=== PATIENT | male | born 1965 | race American Indian/Alaskan Native ===

== ENCOUNTER 2018-06-12 05:33 | Inpatient (IN) | payer MEDICARE ==
[2018-06-12] MEDS ORDERED: ZOFRAN IV ONE (08:25)
[2018-06-12] MEDS ORDERED: MORPHINE IV ONE ×2 (08:25→12:04)
--- NOTE | 2018-06-12 08:29 | Emergency Department Report ---
ED General Adult HPI - General Chief complaint: Chest Pain Stated complaint: CHEST PAIN Time Seen by Provider: 06/12/18 08:05 Source: patient, EMS Mode of arrival: Stretcher Limitations: No Limitations - History of Present Illness Initial comments: Patient presents to emergency department with chief complaint of chest pain that started last night. Patient describes the pain as pressure-like as if an elephant sitting on his chest. The pain is substernal in nature without radiation. Not relieved with 4 nitros at home. Patient has a history of megan nary artery disease as well as 5 vessel bypass and is followed by food safety technician at [facility]. Patient denies SOB -: Sudden Location: chest Radiation: non-radiation Severity scale (0 -10): 10 Quality: other (pressure ) Consistency: constant Improves with: none Worsens with: none Associated Symptoms: denies other symptoms Treatments Prior to Arrival: none - Related Data Home Medications Medication Instructions Recorded Confirmed Last Taken Apixaban [Eliquis] 5 mg PO BID 06/12/18 06/12/18 Unknown Aspirin [Aspirin BABY CHEW TAB] 81 mg PO QDAY 06/12/18 06/12/18 Unknown AtorvaSTATin [Lipitor] 40 mg PO QHS 06/12/18 06/12/18 Unknown Carvedilol [Coreg] 12.5 mg PO BID 06/12/18 06/12/18 Unknown Clopidogrel [Plavix] 75 mg PO QDAY 06/12/18 06/12/18 Unknown Furosemide [Lasix] 80 mg PO BID 06/12/18 06/12/18 Unknown Insulin Detemir [Levemir VIAL] 65 unit SQ BID 06/12/18 06/12/18 Unknown LORazepam [Ativan] 1 mg PO BID PRN 06/12/18 06/12/18 Unknown Lisinopril [Zestril TAB] 10 mg PO QDAY 06/12/18 06/12/18 Unknown amLODIPine [Norvasc] 10 mg PO DAILY 06/12/18 06/12/18 Unknown buPROPion XL [Wellbutrin Xl] 150 mg PO QAM 06/12/18 06/12/18 Unknown metFORMIN [Glucophage] 500 mg PO BID 06/12/18 06/12/18 Unknown traZODone [Desyrel] 100 mg PO QHS 06/12/18 06/12/18 Unknown Allergies Allergy/AdvReac Type Severity Reaction Status Date / Time gabapentin [From Neurontin] Allergy Unknown Verified 06/12/18 05:47 ibuprofen [From Motrin] Allergy Unknown Verified 06/12/18 05:47 Iodinated Contrast- Oral and Allergy Unknown Verified 06/12/18 05:47 IV Dye Iodine and Iodide Containing Allergy Unknown Verified 06/12/18 05:47 Produc latex Allergy Unknown Verified 06/12/18 05:47 metoprolol [From Toprol XL] Allergy Unknown Verified 06/12/18 05:47 topiramate [From Topamax] Allergy Unknown Verified 06/12/18 05:47 venom-honey bee Allergy Unknown Verified 06/12/18 05:47 seafood Allergy Unknown Uncoded 06/12/18 05:47 ED Review of Systems ROS: Stated complaint: CHEST PAIN Other details as noted in HPI Comment: All other systems reviewed and negative Constitutional: denies: chills, fever Eyes: denies: eye pain, eye discharge, vision change ENT: denies: ear pain, throat pain Respiratory: denies: cough, shortness of breath, wheezing Cardiovascular: chest pain. denies: palpitations Endocrine: no symptoms reported Gastrointestinal: denies: abdominal pain, nausea, diarrhea Genitourinary: denies: urgency, dysuria Musculoskeletal: denies: back pain, joint swelling, arthralgia Skin: denies: rash, lesions Neurological: denies: headache, weakness, paresthesias Psychiatric: denies: anxiety, depression Hematological/Lymphatic: denies: easy bleeding, easy bruising ED Past Medical Hx - Past Medical History Previous Medical History?: Yes Hx Hypertension: Yes Hx Heart Attack/AMI: Yes (x3) Hx Congestive Heart Failure: Yes Hx Diabetes: Yes Additional medical history: bulging disc. fld on back. CAD - Surgical History Past Surgical History?: Yes Hx Open Heart Surgery: Yes (CABG x5) Additional Surgical History: Back x9. prostate - Social History Smoking Status: Never Smoker Substance Use Type: None - Medications Home Medications: Home Medications Medication Instructions Recorded Confirmed Last Taken Type Apixaban [Eliquis] 5 mg PO BID 06/12/18 06/12/18 Unknown History Aspirin [Aspirin BABY CHEW TAB] 81 mg PO QDAY 06/12/18 06/12/18 Unknown History AtorvaSTATin [Lipitor] 40 mg PO QHS 06/12/18 06/12/18 Unknown History Carvedilol [Coreg] 12.5 mg PO BID 06/12/18 06/12/18 Unknown History Clopidogrel [Plavix] 75 mg PO QDAY 06/12/18 06/12/18 Unknown History Furosemide [Lasix] 80 mg PO BID 06/12/18 06/12/18 Unknown History Insulin Detemir [Levemir VIAL] 65 unit SQ BID 06/12/18 06/12/18 Unknown History LORazepam [Ativan] 1 mg PO BID PRN 06/12/18 06/12/18 Unknown History Lisinopril [Zestril TAB] 10 mg PO QDAY 06/12/18 06/12/18 Unknown History amLODIPine [Norvasc] 10 mg PO DAILY 06/12/18 06/12/18 Unknown History buPROPion XL [Wellbutrin Xl] 150 mg PO QAM 06/12/18 06/12/18 Unknown History metFORMIN [Glucophage] 500 mg PO BID 06/12/18 06/12/18 Unknown History traZODone [Desyrel] 100 mg PO QHS 06/12/18 06/12/18 Unknown History ED Physical Exam - General Limitations: No Limitations General appearance: alert, in no apparent distress - Head Head exam: Present: atraumatic, normocephalic - Eye Eye exam: Present: normal appearance, PERRL, EOMI - ENT ENT exam: Present: mucous membranes moist - Neck Neck exam: Present: normal inspection - Respiratory Respiratory exam: Present: normal lung sounds bilaterally, other (port right chest wall). Absent: respiratory distress, wheezes, rales - Cardiovascular Cardiovascular Exam: Present: regular rate, normal rhythm. Absent: systolic murmur, diastolic murmur, rubs, gallop - GI/Abdominal GI/Abdominal exam: Present: soft, normal bowel sounds. Absent: distended, tenderness - Rectal Rectal exam: Present: deferred - Extremities Exam Extremities exam: Present: normal inspection - Back Exam Back exam: Present: normal inspection - Neurological Exam Neurological exam: Present: alert, oriented X3 - Psychiatric Psychiatric exam: Present: normal affect, normal mood - Skin Skin exam: Present: warm, dry, intact, normal color. Absent: rash ED Course Vital Signs 06/12/18 06/12/18 06/12/18 05:35 11:01 14:12 Temperature 97.6 F Pulse Rate 86 80 78 Respiratory 18 16 16 Rate Blood Pressure 158/91 Blood Pressure 140/84 142/78 [Left] O2 Sat by Pulse 100 100 100 Oximetry ED Medical Decision Making - Lab Data Result diagrams: 06/12/18 Unknown 06/12/18 Unknown Lab Results 06/12/18 06/12/18 06/12/18 Range/Units Unknown Unknown Unknown WBC 7.8 (4.5-11.0) K/mm3 RBC 3.61 L (3.65-5.03) M/mm3 Hgb 8.6 L (11.8-15.2) gm/dl Hct 27.1 L (35.5-45.6) % MCV 75 L (84-94) fl MCH 24 L (28-32) pg MCHC 32 (32-34) % RDW 18.9 H (13.2-15.2) % Plt Count 399 (140-440) K/mm3 Lymph % (Auto) 28.7 (13.4-35.0) % Mcdonald % (Auto) 10.5 H (0.0-7.3) % Eos % (Auto) 1.3 (0.0-4.3) % Baso % (Auto) 0.8 (0.0-1.8) % Lymph # 2.2 (1.2-5.4) K/mm3 Mcdonald # 0.8 (0.0-0.8) K/mm3 Eos # 0.1 (0.0-0.4) K/mm3 Baso # 0.1 (0.0-0.1) K/mm3 Seg Neutrophils % 58.7 (40.0-70.0) % Seg Neutrophils # 4.6 (1.8-7.7) K/mm3 Sodium 139 (137-145) mmol/L Potassium 3.9 (3.6-5.0) mmol/L Chloride 101.4 (98-107) mmol/L Carbon Dioxide 26 (22-30) mmol/L Anion Gap 16 mmol/L BUN 10 (9-20) mg/dL Creatinine 0.6 L (0.8-1.5) mg/dL Estimated GFR > 60 ml/min BUN/Creatinine Ratio 17 % Glucose 264 H (75-100) mg/dL Calcium 9.5 (8.4-10.2) mg/dL Total Bilirubin 0.20 (0.1-1.2) mg/dL Direct Bilirubin < 0.2 (0-0.2) mg/dL Indirect Bilirubin 0.0 mg/dL AST 15 (5-40) units/L ALT 23 (7-56) units/L Alkaline Phosphatase 159 H (35-129) units/L Troponin T < 0.010 (0.00-0.029) ng/mL Total Protein 7.0 (6.3-8.2) g/dL Albumin 4.3 (3.9-5) g/dL Albumin/Globulin Ratio 1.6 % - EKG Data -: EKG Interpreted by [facility] EKG shows normal: sinus rhythm Rate: normal - Radiology Data Radiology results: report reviewed - Medical Decision Making Discussed results with the patient Patient had relief of chest pain with morphine Critical care attestation.: If time is entered above; I have spent that time in minutes in the direct care of this critically ill patient, excluding procedure time. ED Disposition Clinical Impression: Chest pain Disposition: [id number] OP ADMIT IP TO THIS HOSP Is pt being admited?: Yes Does the pt Need Aspirin: No Condition: Fair
[2018-06-12 08:42] LABS: Basophils # (Auto) 0.1 K/mm3 (0.0-0.1); Basophils % (Auto) 0.8 % (0.0-1.8); Eosinophils # (Auto) 0.1 K/mm3 (0.0-0.4); Eosinophils % (Auto) 1.3 % (0.0-4.3); Hematocrit 27.1 % (35.5-45.6); Hemoglobin 8.6 gm/dl (11.8-15.2); Lymphocytes # (Auto) 2.2 K/mm3 (1.2-5.4); Lymphocytes % (Auto) 28.7 % (13.4-35.0); Mean Corpuscular HGB Conc 32 % (32-34); Mean Corpuscular Volume 75 fl (84-94); Monocytes # (Auto) 0.8 K/mm3 (0.0-0.8); Monocytes % (Auto) 10.5 % (0.0-7.3); Platelet Count 399 K/mm3 (140-440); Red Blood Count 3.61 M/mm3 (3.65-5.03); Red Cell Distribution Width 18.9 % (13.2-15.2)
[2018-06-12 08:58] LABS: BUN/Creatinine Ratio 17; Blood Urea Nitrogen 10 mg/dL (9-20); Calcium 9.5 mg/dL (8.4-10.2); Hemolysis Index 3
[2018-06-12 09:01] LABS: Alanine Aminotransferase 23 units/L (7-56); Albumin 4.3 g/dL (3.9-5)
[2018-06-12 09:17] LABS: Bilirubin,Direct < 0.2 mg/dL (0-0.2)
--- NOTE | 2018-06-12 11:37 | XRay Report ---
AP CHEST: HISTORY: chest pain Thoracic surgery changes, left [id number] and pacemaker device are noted. AP view of the chest demonstrates a normal mediastinal and cardiac contour with clear lungs and normal bony and soft tissue structures. IMPRESSION: Unremarkable AP chest.
[2018-06-12] MEDS ORDERED: PROVENTIL IH PRN (12:05)
[2018-06-12] MEDS ORDERED: SODIUM CHLORIDE FLUSH SYRINGE 10 ML IV PRN ×2 (12:05)
[2018-06-12] MEDS ORDERED: TYLENOL PO PRN (12:05)
[2018-06-12] MEDS ORDERED: NITROSTAT SL PRN (12:05)
[2018-06-12] MEDS ORDERED: BABY ASPIRIN PO STA (12:05)
[2018-06-12] MEDS ORDERED: ZOFRAN IV PRN (12:05)
--- NOTE | 2018-06-12 12:05 | History and Physical Report ---
History of Present Illness Chief complaint: My chest hurts History of present illness: 53 YO Male with HTN, CT, DM, CHF, Lumbar Disk disease, CAD S/P CABG presents to ED for evaluation. Pt states that he has experienced chest pain over the past 1 day with acutely worsening symptoms overnight. Pt states that his pain is 10/10, constant, crushing in nature, localized to the left chest, substernal, nonradiating, lasts for several minutes, worsened with exertion, not relieved with rest or with nitro tablets. Pt acknowledges Orthopnea/PND, Decreased exercise tolerance. Patient denies medication noncompliance, fever, chills, palpitations, shortness of breath, NVD, skin rash, trauma, unilateral leg swelling, calf pain, prolonged travel/immobility, hemoptysis. EMS notified and upon arrival the patient was found to be in distress. Pt transported to [facility] for further care and evaluation. Pt seen and evaluated in ED and found to have symptoms consistent with CHF, as well as Chest pain. Pt admitted to telemetry. Cardiology consulted in ED. Past History Past Medical History: acute CT, CAD, diabetes, heart failure, hypertension, hyperlipidemia, other (LDD) Past Surgical History: CABG, Other (Prostate) Social history: . denies: smoking, alcohol abuse, prescription drug abuse Medications and Allergies Allergies Allergy/AdvReac Type Severity Reaction Status Date / Time gabapentin [From Neurontin] Allergy Unknown Verified 06/12/18 05:47 ibuprofen [From Motrin] Allergy Unknown Verified 06/12/18 05:47 Iodinated Contrast- Oral and Allergy Unknown Verified 06/12/18 05:47 IV Dye Iodine and Iodide Containing Allergy Unknown Verified 06/12/18 05:47 Produc latex Allergy Unknown Verified 06/12/18 05:47 metoprolol [From Toprol XL] Allergy Unknown Verified 06/12/18 05:47 topiramate [From Topamax] Allergy Unknown Verified 06/12/18 05:47 venom-honey bee Allergy Unknown Verified 06/12/18 05:47 seafood Allergy Unknown Uncoded 06/12/18 05:47 Home Medications Medication Instructions Recorded Confirmed Last Taken Type Apixaban [Eliquis] 5 mg PO BID 06/12/18 06/12/18 Unknown History Aspirin [Aspirin BABY CHEW TAB] 81 mg PO QDAY 06/12/18 06/12/18 Unknown History AtorvaSTATin [Lipitor] 40 mg PO QHS 06/12/18 06/12/18 Unknown History Carvedilol [Coreg] 12.5 mg PO BID 06/12/18 06/12/18 Unknown History Clopidogrel [Plavix] 75 mg PO QDAY 06/12/18 06/12/18 Unknown History Furosemide [Lasix] 80 mg PO BID 06/12/18 06/12/18 Unknown History Insulin Detemir [Levemir VIAL] 65 unit SQ BID 06/12/18 06/12/18 Unknown History LORazepam [Ativan] 1 mg PO BID PRN 06/12/18 06/12/18 Unknown History Lisinopril [Zestril TAB] 10 mg PO QDAY 06/12/18 06/12/18 Unknown History amLODIPine [Norvasc] 10 mg PO DAILY 06/12/18 06/12/18 Unknown History buPROPion XL [Wellbutrin Xl] 150 mg PO QAM 06/12/18 06/12/18 Unknown History metFORMIN [Glucophage] 500 mg PO BID 06/12/18 06/12/18 Unknown History traZODone [Desyrel] 100 mg PO QHS 06/12/18 06/12/18 Unknown History Review of Systems Constitutional: no weight loss, no weight gain, no chills Ears, nose, mouth and throat: no ear pain, no ear discharge, no tinnitis, no decreased hearing, no nose pain, no nasal congestion Cardiovascular: chest pain, orthopnea, dyspnea on exertion, paroxysmal nocturnal dyspnea, decreased exercise tolerance, no shortness of breath Respiratory: no cough, no cough with sputum, no excessive sputum, no hemoptysis Gastrointestinal: no abdominal pain, no nausea, no vomiting, no diarrhea Genitourinary Male: no hematuria, no flank pain, no discharge, no urinary frequency, no urinary hesitancy Rectal: no pain, no incontinence, no bleeding Musculoskeletal: no neck stiffness, no neck pain, no shooting arm pain, no arm numbness/tingling, no low back pain Integumentary: no rash, no pruritis, no redness, no sores, no wounds Neurological: no transient paralysis, no paralysis, no weakness, no numbness Psychiatric: no anxiety, no memory loss Endocrine: no cold intolerance, no heat intolerance, no polyphagia, no excessive thirst, no polydipsia Hematologic/Lymphatic: no easy bruising, no easy bleeding, no lymphadenopathy, no lymphedema Allergic/Immunologic: no urticaria, no allergic rhinitis, no wheezing, no persistent infections, no anaphylaxis Exam - Constitutional Vitals: Temp Pulse Resp BP Pulse Ox 97.6 F 80 16 140/84 100 06/12/18 05:35 06/12/18 11:01 06/12/18 11:01 06/12/18 11:01 06/12/18 11:01 General appearance: Present: mild distress - EENT Eyes: Present: PERRL ENT: hearing intact, clear oral mucosa - Neck Neck: Present: supple, normal ROM - Respiratory Respiratory effort: normal Respiratory: bilateral: CTA - Cardiovascular Heart Sounds: Present: S1 & S2. Absent: rub, click - Extremities Extremity abnormal: edema Peripheral Pulses: within normal limits - Abdominal General gastrointestinal: Present: soft, non-tender, non-distended, normal bowel sounds Male genitourinary: Present: normal - Integumentary Integumentary: Present: clear, warm, dry - Musculoskeletal Musculoskeletal: gait normal, strength equal bilaterally - Psychiatric Psychiatric: appropriate mood/affect, intact judgment & insight - Neurologic Neurologic: CNII-XII intact, moves all extremities Results - Labs CBC & Chem 7: 06/12/18 Unknown 06/12/18 Unknown Labs: Abnormal lab results 06/12/18 06/12/18 06/12/18 Range/Units Unknown Unknown Unknown RBC 3.61 L (3.65-5.03) M/mm3 Hgb 8.6 L (11.8-15.2) gm/dl Hct 27.1 L (35.5-45.6) % MCV 75 L (84-94) fl MCH 24 L (28-32) pg RDW 18.9 H (13.2-15.2) % Throckmorton % (Auto) 10.5 H (0.0-7.3) % Creatinine 0.6 L (0.8-1.5) mg/dL Glucose 264 H (75-100) mg/dL Alkaline Phosphatase 159 H (35-129) units/L Assessment and Plan - Patient Problems (1) CHF (congestive heart failure) Current Visit: Yes Status: Acute Qualifiers: Heart failure type: combined systolic and diastolic Heart failure chronicity: acute on chronic Qualified Code(s): I50.43 - Acute on chronic combined systolic (congestive) and diastolic (congestive) heart failure Plan to address problem: Admit to telemetry, Echo, cardiology consulted in ED, strict I/O, daily weight, monitor uop q shift, supplemental oxygen, bnp, cardiology consulted, afterload reduction. (2) CAD (coronary artery disease) Current Visit: Yes Status: Acute Qualifiers: Associated angina: with stable angina Plan to address problem: Lipid panel, risk factor reduction therapy, statin therapy as indicated. low cholesterol diet (3) Chest pain Current Visit: Yes Status: Acute Qualifiers: Ischemic chest pain type: stable angina pectoris Plan to address problem: Admit to telemetry, (4) DVT prophylaxis Current Visit: Yes Status: Acute Plan to address problem: SCD to BLE while in bed.
[2018-06-12] MEDS ORDERED: ATIVAN PO PRN (12:09)
[2018-06-12] MEDS ORDERED: D50W (25GM) Syringe IV PRN (12:11)
[2018-06-12] MEDS ORDERED: ASPIRIN ONE (12:55)
[2018-06-12] MEDS: MORPHINE IV PRN ×2 (15:38→21:15)
[2018-06-12] MEDS: HumaLOG SUB-Q SCH ×2 (18:06→23:11)
[2018-06-12] MEDS: COREG PO SCH (21:17)
[2018-06-12] MEDS: SODIUM CHLORIDE FLUSH SYRINGE 10 ML IV SCH (21:18)
[2018-06-12] MEDS: DESYREL PO SCH (21:18)
[2018-06-12] MEDS: LASIX PO SCH (21:18)
[2018-06-12] MEDS: ELIQUIS PO SCH (21:18)
[2018-06-12] MEDS ORDERED: NON-FORMULARY (Furosemide [Lasix] 80 MG) PO SCH (22:00)
[2018-06-13] MEDS: MORPHINE IV PRN ×5 (05:05→23:17)
[2018-06-13] MEDS: HumaLOG SUB-Q SCH ×4 (05:48→23:16)
[2018-06-13 05:49] LABS: BUN/Creatinine Ratio 13; Blood Urea Nitrogen 9 mg/dL (9-20); Hemolysis Index 4
[2018-06-13] MEDS ORDERED: LEXISCAN IV ONE ×2 (09:09→10:35)
--- NOTE | 2018-06-13 12:11 | Event Note ---
Date: 06/13/18 Chest Pain - reason for admission MPI this admission consistent with a large fixed inferior and inferolateral wall defect suggesting prior MD in the RCA and Cx distribution Negative cardiac enzymes Normal BNP Normal ECG Normal CXR Ischemic cardiomyopathy LVEF 40% by MPI LVEF 45-50% by echo Coronary artery disease s/p CABG 2007 and PCI Peripheral vascular disease s/p [employer] Hypercoagulable state per patient on aspirin, plavix and eliquis at home Type II DM Hyperlipidemia Anemia Recommendations: No further work-up is needed for chest pain. Patient can follow-up as outpatient with his primary project management manager Follow-up H/H is recommended to rule out occult bleeding given low hemoglobin levels (patient on asa, plavix and eliquis at home)
[2018-06-13] MEDS: WELLBUTRIN XL PO SCH (13:07)
[2018-06-13] MEDS: ZESTRIL PO SCH (13:07)
[2018-06-13] MEDS: LASIX PO SCH ×2 (13:08→21:59)
[2018-06-13] MEDS: NORVASC PO SCH (13:08)
[2018-06-13] MEDS: BABY ASPIRIN PO SCH (13:08)
[2018-06-13] MEDS: PLAVIX PO SCH (13:08)
[2018-06-13] MEDS: SODIUM CHLORIDE FLUSH SYRINGE 10 ML IV SCH ×2 (13:09→21:59)
[2018-06-13] MEDS: PEPCID PO SCH (13:33)
[2018-06-13] MEDS: ELIQUIS PO SCH ×2 (13:33→21:58)
[2018-06-13] MEDS: COREG PO SCH ×2 (13:33→21:58)
[2018-06-13] MEDS: XANAX PO SCH ×2 (14:57→22:02)
--- NOTE | 2018-06-13 17:42 | Cat Scan Report ---
FINAL REPORT EXAM: CT LUMBAR SPINE WO CON HISTORY: neck and back pain TECHNIQUE: Spiral high-resolution unenhanced 2.5 millimeter axial images were obtained through the l umbar spine. Sagittal and coronal plane are reconstructions were performed. PRIORS: None. FINDINGS: Counting reference: Lumbosacral junction. For the purposes of this report, L4-L5 is considered the le chandler of the iliac crest. Bone marrow/ Fracture: No evidence for acute or chronic fracture is seen. No evidence of a lytic or b lastic process in the visualized spine. Postsurgical changes are present with bilateral pedicle screw s and stabilizing bars from L2 through S1 related to lumbar fusion. There is been laminectomy at thes e levels as well. The hardware creates significant beam hardening artifact throughout the lumbar spin e. Alignment: Alignment is anatomic. Disc spaces: narrowing of the lumbar disc levels is present throughout. There is a possible prosthesi s at the disc level involving L2-L3 and L3-L4 which can be correlated clinically Paraspinal soft tissues: The paraspinal soft tissues show no evidence for paravertebral hematoma or s oft tissue mass. An inferior vena cava filter is present to the right at L3-L4. Venous stent is prese nt in the right iliac vein. Sacrum and iliac wings: Visualized portions of the sacrum and iliac wings appear intact without fract ure. The presacral soft tissues are normal in appearance. Incidental: Multiple nonobstructing renal calculi in the right kidney are noted. There is a focal are a of hypodensity in the medial mid to lower pole right kidney which is difficult to further evaluate on this exam due to artifact from the lumbar spine hardware. This may represent a cyst. IMPRESSION: 1. No acute abnormality 2. Extensive postsurgical changes from L2 through S1 due to lumbar fusion. I suspect there are disc p rosthesis at L2-L3 and L3 on L4 which can be correlated clinically. 3. Incidental right renal nonobstructing calculi. 4. Hypodensity in the mid to lower pole of the right kidney which is difficult to further evaluate du e to artifact. This may represent a renal cyst.
--- NOTE | 2018-06-13 17:42 | Cat Scan Report ---
FINAL REPORT EXAM: CT THORACIC SPINE WO CON HISTORY: back pain TECHNIQUE: Standard CT thoracic spine obtained at 2.5 millimeter axial increments. Coronal and sagi ttal reconstruction was also performed. PRIORS: None. FINDINGS: The vertebral bodies are intact. There is no evidence for acute fracture. There is no evidence for paravertebral soft tissue swelling. Alignment is maintained. Moderate degenerative disc narrowing at T10 through T12 are noted. There is bilateral neural foramina l narrowing from T10 through T12 due to posterior spurring. Incidental note is made of nonobstructing right renal calculi and a hypodensity in the medial mid to lower pole right kidney, probably a cyst. This is obscured by metallic artifact due to lumbar spine s urgery. Calcified granuloma in the superior segment right lower lobe is noted. IMPRESSION: No acute abnormality of the thoracic spine. Degenerative disc changes at T10 through T12 with bilater al neural foraminal narrowing at these levels.
--- NOTE | 2018-06-13 17:42 | Cat Scan Report ---
FINAL REPORT EXAM: CT CERVICAL SPINE WO CON HISTORY: neck pain TECHNIQUE: Standard CT cervical spine obtained at 2.5 mm axial increments. Coronal and sagittal rec onstruction was also performed. PRIORS: None. FINDINGS: The vertebral bodies are intact. There is no evidence for acute fracture. There is no evidence for paravertebral soft tissue swelling. Alignment is maintained. Moderate degenerative disc narrowing to at C5-C6 and C6-C7 is seen with spurring anteriorly and poste riorly at these levels. There is mild neural foraminal narrowing at C5-C6 to the left due to the post erior spurring. IMPRESSION: No acute abnormality of the cervical spine. Degenerative disc narrowing at C5 through C7 with mild le ft neural foraminal narrowing at C5-C6.
[2018-06-13] MEDS: DESYREL PO SCH (21:58)
--- NOTE | 2018-06-13 22:04 | Treadmill Report ---
ORDERING PHYSICIAN: Coco Crawford MD INDICATION: Chest pain. FINDINGS: There is evidence of a large apical, mid and basal inferior wall defect of severe intensity consistent with a prior history of myocardial infarction in the right coronary artery distribution. There is also evidence of a large-sized fixed defect in the basal and mid inferolateral wall, suggesting also infarction in the left circumflex artery distribution. There is no significant reversibility to suggest underlying ischemia. Wall motion imaging reveals a fixed inferior wall defect with akinesis on gated imaging. The left ventricular ejection fraction is measured at 40%. CONCLUSION: 1. Large fixed inferior as well as inferolateral wall defect of severe intensity consistent with prior infarction in the right coronary artery/circumflex artery distribution. 2. The left ventricular cavity size is normal with evidence of inferior wall akinesis. Ejection fraction estimated at 40%. 3. This is a [id number] risk myocardial perfusion scan associated with a 1-year risk of cardiovascular events of 1-3%. [facility]# [id number] KRYS/EDNA
--- NOTE | 2018-06-13 23:55 | Progress Note ---
Assessment and Plan Assessment and plan: 53 year old man with history of diastolic CHF who presents with shortness of breath and CP. He was treated for CHF exacerbation with IV diuretics. He went on to have a stress test that was negative for any new reversible defect. He was seen by Cardiology who agreed with medication optimization. The patient is pending a repeat CBC to determine if anemia is contributing to his chest pain. He also complained of back pains, which he had worked up at [facility]. he received total spine CT which showed some degenerative changes but no acute changes. Diagnosis - Acute exacerbation of chronic systolic CHF chest pain due to CHF exacerbation djd of spine History Interval history: c/o neck and Lower back pain which has been going on for a few weeks Review of systems Constitutional: No fevers, no malaise, no joint pains CVS: No chest pain, no orthopnea, no dyspnea on exertion, no pedal edema GI: No abdominal pain, no diarrhea, no vomiting, no constipation Respiratory: No shortness of breath, no wheezing, no coughing Hospitalist Physical - Physical exam Narrative exam: General.: Appears well, no distress, nontoxic HEENT: Moist mucous membranes, extraocular muscles intact, no lymphadenopathy Neck: supple Cardiac: S1-S2 heard Lungs: clear to auscultation bilaterally Abdomen: soft , nontender, nondistended, bowel sounds positive Extremities: no edema clubbing or cyanosis Skin: no rash or lesions Neurologic: no gross focal deficits Psych: calm, and cooperative - Constitutional Vitals: Temp Pulse Resp BP Pulse Ox 98.2 F 85 17 107/67 99 06/13/18 19:40 06/13/18 21:58 06/13/18 19:40 06/13/18 21:58 06/13/18 19:40 General appearance: Present: mild distress Results - Labs CBC & Chem 7: 06/12/18 Unknown 06/13/18 Unknown Labs: Laboratory Last Values WBC 7.8 K/mm3 (4.5-11.0) 06/12/18 Unknown RBC 3.61 M/mm3 (3.65-5.03) L 06/12/18 Unknown Hgb 8.6 gm/dl (11.8-15.2) L 06/12/18 Unknown Hct 27.1 % (35.5-45.6) L 06/12/18 Unknown MCV 75 fl (84-94) L 06/12/18 Unknown MCH 24 pg (28-32) L 06/12/18 Unknown MCHC 32 % (32-34) 06/12/18 Unknown RDW 18.9 % (13.2-15.2) H 06/12/18 Unknown Plt Count 399 K/mm3 (140-440) 06/12/18 Unknown Lymph % (Auto) 28.7 % (13.4-35.0) 06/12/18 Unknown Traill % (Auto) 10.5 % (0.0-7.3) H 06/12/18 Unknown Eos % (Auto) 1.3 % (0.0-4.3) 06/12/18 Unknown Baso % (Auto) 0.8 % (0.0-1.8) 06/12/18 Unknown Lymph # 2.2 K/mm3 (1.2-5.4) 06/12/18 Unknown Traill # 0.8 K/mm3 (0.0-0.8) 06/12/18 Unknown Eos # 0.1 K/mm3 (0.0-0.4) 06/12/18 Unknown Baso # 0.1 K/mm3 (0.0-0.1) 06/12/18 Unknown Seg Neutrophils % 58.7 % (40.0-70.0) 06/12/18 Unknown Seg Neutrophils # 4.6 K/mm3 (1.8-7.7) 06/12/18 Unknown D-Dimer 137.63 ng/mlDDU (0-234) 06/12/18 Unknown Sodium 138 mmol/L (137-145) 06/13/18 Unknown Potassium 3.8 mmol/L (3.6-5.0) 06/13/18 Unknown Chloride 98.2 mmol/L (98-107) 06/13/18 Unknown Carbon Dioxide 29 mmol/L (22-30) 06/13/18 Unknown Anion Gap 15 mmol/L 06/13/18 Unknown BUN 9 mg/dL (9-20) 06/13/18 Unknown Creatinine 0.7 mg/dL (0.8-1.5) L 06/13/18 Unknown Estimated GFR > 60 ml/min 06/13/18 Unknown BUN/Creatinine Ratio 13 % 06/13/18 Unknown Glucose 313 mg/dL (75-100) H 06/13/18 Unknown POC Glucose 339 (70-105) H 06/13/18 23:13 Calcium 9.0 mg/dL (8.4-10.2) 06/13/18 Unknown Total Bilirubin 0.20 mg/dL (0.1-1.2) 06/12/18 Unknown Direct Bilirubin < 0.2 mg/dL (0-0.2) 06/12/18 Unknown Indirect Bilirubin 0.0 mg/dL 06/12/18 Unknown AST 15 units/L (5-40) 06/12/18 Unknown ALT 23 units/L (7-56) 06/12/18 Unknown Alkaline Phosphatase 159 units/L (35-129) H 06/12/18 Unknown Troponin T < 0.010 ng/mL (0.00-0.029) 06/12/18 Unknown NT-Pro-B Natriuret Pep 70.03 pg/mL (0-900) 06/12/18 Unknown Total Protein 7.0 g/dL (6.3-8.2) 06/12/18 Unknown Albumin 4.3 g/dL (3.9-5) 06/12/18 Unknown Albumin/Globulin Ratio 1.6 % 06/12/18 Unknown Nutrition/Malnutrition Assess - Dietary Evaluation Nutrition/Malnutrition Findings: Nutrition Notes Start: 06/13/18 14:47 Freq: Status: Active Protocol: Document 06/13/18 14:47 (Rec: 06/13/18 14:57 [email or web address]) Co-Sign 06/13/18 14:47 OL Nutrition Notes Initial or Follow up Brief Note Current Diagnosis Coronary Artery Disease Diabetes Hypertension Heart Failure Other Pertinent Diagnosis [place] x 3, Labs/Tests Glu: 313 Pertinent Medications Lasix Subjective/Other Information Pt screened for skin risk and new onset of DM. Umang score = 19. Pt. unavailable during AM and PM. 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
[2018-06-14] MEDS: MORPHINE IV PRN ×3 (03:27→11:51)
[2018-06-14 06:52] LABS: Basophils % (Auto) 0.6 % (0.0-1.8); Eosinophils # (Auto) 0.2 K/mm3 (0.0-0.4); Eosinophils % (Auto) 2.8 % (0.0-4.3); Hematocrit 27.6 % (35.5-45.6); Hemoglobin 8.9 gm/dl (11.8-15.2); Lymphocytes # (Auto) 1.9 K/mm3 (1.2-5.4); Lymphocytes % (Auto) 30.5 % (13.4-35.0); Mean Corpuscular HGB Conc 32 % (32-34); Mean Corpuscular Volume 74 fl (84-94); Monocytes # (Auto) 0.7 K/mm3 (0.0-0.8); Monocytes % (Auto) 10.5 % (0.0-7.3); Platelet Count 367 K/mm3 (140-440); Red Blood Count 3.72 M/mm3 (3.65-5.03)
[2018-06-14] MEDS: HumaLOG SUB-Q SCH (07:34)
[2018-06-14] MEDS: PLAVIX PO SCH (09:02)
[2018-06-14] MEDS: WELLBUTRIN XL PO SCH (09:02)
[2018-06-14] MEDS: XANAX PO SCH ×2 (09:02→09:05)
[2018-06-14] MEDS: ELIQUIS PO SCH (09:03)
[2018-06-14] MEDS: BABY ASPIRIN PO SCH (09:03)
[2018-06-14] MEDS: PEPCID PO SCH (09:03)
[2018-06-14] MEDS: LASIX PO SCH (09:03)
[2018-06-14] MEDS: COREG PO SCH (09:05)
[2018-06-14] MEDS: ZESTRIL PO SCH (09:05)
[2018-06-14] MEDS: NORVASC PO SCH (09:05)
--- NOTE | 2018-06-14 11:08 | Discharge Summary ---
Providers - Providers Date of Admission: 06/12/18 12:05 Attending physician: ESMER RITCHIE MD 06/12/18 Consult to Cardiac Rehabilitation [CONS] Routine Reason For Exam: Phase I 06/12/18 12:06 Consult to Cardiology [CONS] Routine Consulting Provider: KIRT CHOUDHARY Reason For Exam: chest pain Primary care physician: HOOD SANCHEZ Hospitalization Condition: Fair Hospital course: 53 year old man with history of diastolic CHF who presents with shortness of breath and CP. He was treated for CHF exacerbation with IV diuretics. He went on to have a stress test that was negative for any new reversible defect. He was seen by Cardiology who agreed with medication optimization. Repeat CBC was stable, he was put on iron supplement. He also complained of back pains, which he had worked up at [facility]. he received total spine CT which showed some degenerative changes but no acute changes. Diagnosis - Acute exacerbation of chronic systolic CHF chest pain due to CHF exacerbation djd of spine microcytic anemia- stable Disposition: DC- TO HOME OR SELFCARE Time spent for discharge: 33 mins Core Measure Documentation - Palliative Care Palliative Care/ Comfort Measures: Not Applicable - Core Measures Any of the following diagnoses?: none Exam - Constitutional Vitals: Temp Pulse Resp BP Pulse Ox 97.9 F 85 18 105/60 99 06/14/18 07:30 06/14/18 07:30 06/14/18 07:30 06/14/18 07:30 06/14/18 09:58 General appearance: Present: no acute distress, well-nourished - EENT Eyes: Present: PERRL ENT: hearing intact, clear oral mucosa - Neck Neck: Present: supple, normal ROM - Respiratory Respiratory effort: normal Respiratory: bilateral: CTA - Cardiovascular Heart Sounds: Present: S1 & S2. Absent: rub, click - Extremities Extremities: pulses symmetrical, No edema Peripheral Pulses: within normal limits - Abdominal General gastrointestinal: Present: soft, non-tender, non-distended, normal bowel sounds Male genitourinary: Present: normal - Integumentary Integumentary: Present: clear, warm, dry - Musculoskeletal Musculoskeletal: gait normal, strength equal bilaterally - Psychiatric Psychiatric: appropriate mood/affect, intact judgment & insight - Neurologic Neurologic: CNII-XII intact, moves all extremities Plan Follow up with: HOOD SANCHEZ MD [Primary Care Provider] - 3-5 Days
[2018-06-14 11:12] VITALS: BP 105/65
--- NOTE | 2018-06-14 13:30 | Progress Note ---
Addendum entered and electronically signed by KIRT CHOUDHARY MD 06/14/18 14:14: Patient has been recommended for medical therapy at risk factor modification, ba sed on a fixed defect with no ischemia on thallium imaging. He should be maintained on the maximal guideline directed medical therapy for coronary artery disease in addition to aggressive risk factor modification. He should follow-up with his primary outpatient superintendent marine in 3-5 days, and is advised to immediately return to the emergency room if any further chest. Original Note: Assessment and Plan Chest Pain - reason for admission MPI this admission consistent with a large fixed inferior and inferolateral wall defect suggesting prior CO in the RCA and Cx distribution Negative cardiac enzymes Normal BNP Normal ECG Normal CXR Ischemic cardiomyopathy LVEF 40% by MPI LVEF 45-50% by echo Coronary artery disease s/p CABG 2007 and PCI Peripheral vascular disease s/p FLIGHT NURSE Hypercoagulable state per patient on aspirin, plavix and eliquis at home Type II DM Hyperlipidemia Anemia Recommendations: No further work-up is needed for chest pain. Patient can follow-up as outpatient with his primary superintendent marine, Dr Webster, within 3-5 days of discharge. Subjective Date of service: 06/14/18 Interval history: Patient complains of back pain. Objective Vital Signs Temp Pulse Resp BP Pulse Ox 06/14/18 11:51 18 06/14/18 11:10 97.9 F 85 18 105/65 99 06/14/18 09:58 99 06/14/18 09:05 85 105/60 06/14/18 07:30 97.9 F 85 18 105/60 99 06/14/18 06:00 84 06/14/18 03:27 20 06/14/18 00:41 98.6 F 81 17 102/64 98 06/13/18 23:17 98.3 F 86 17 100/60 98 06/13/18 22:00 86 06/13/18 21:58 85 107/67 06/13/18 19:40 98.2 F 81 17 107/67 99 06/13/18 18:33 98.4 F 18 112/72 06/13/18 14:00 70 - Physical Examination General: No Apparent Distress HEENT: Positive: PERRL Neck: Positive: trachea midline Cardiac: Positive: Reg Rate and Rhythm Lungs: Positive: Decreased Breath Sounds - Labs and Meds CBC 06/14/18 Range/Units 05:45 WBC 6.3 (4.5-11.0) K/mm3 RBC 3.72 (3.65-5.03) M/mm3 Hgb 8.9 L (11.8-15.2) gm/dl Hct 27.6 L (35.5-45.6) % Plt Count 367 (140-440) K/mm3 Lymph # 1.9 (1.2-5.4) K/mm3 Cobb # 0.7 (0.0-0.8) K/mm3 Eos # 0.2 (0.0-0.4) K/mm3 Baso # 0.0 (0.0-0.1) K/mm3
== END 2018-06-14 15:51 | disposition home or self-care (01) | DRG 292 ==
LOC: ED 05:33 → 4A 12:05
PROVIDERS: ADMIT Internal Medicine; ATTEND Internal Medicine
DX: I11.0 Hypertensive heart disease with heart failure (principal); D68.59 Other primary thrombophilia; I50.43 Acute on chronic combined systolic (congestive) and diastolic (congestive) heart failure; E11.9 Type 2 diabetes mellitus without complications; I25.5 Ischemic cardiomyopathy; D64.9 Anemia, unspecified; I25.10 Atherosclerotic heart disease of native coronary artery without angina pectoris; M47.819 Spondylosis without myelopathy or radiculopathy, site unspecified; D50.9 Iron deficiency anemia, unspecified; Z95.1 Presence of aortocoronary bypass graft; I25.2 Old myocardial infarction; Z88.8 Allergy status to other drugs, medicaments and biological substances; Z91.030 Bee allergy status; Z91.041 Radiographic dye allergy status; Z91.040 Latex allergy status; Z91.013 Allergy to seafood; Z79.01 Long term (current) use of anticoagulants; Z79.82 Long term (current) use of aspirin; Z79.84 Long term (current) use of oral hypoglycemic drugs
CPT/HCPCS: 36415; 71045; 72125; 72128; 72131; 78452; 80048; 80076; 82962; 83880; 84484; 85025; 85379; 93005; 93010; 93017; 93306; 94760; G0378; A9270-GY; A9502; J1815; J2270; J2405; J2785